=== PATIENT | male | born 1985 | race African-American/Black ===

== ENCOUNTER → 2020-03-20 | Outpatient (CLI) | payer BC, OTHER ==
[~2020-03-20] MED LIST: ALEVE220 M1; IMODIUM MULTI-1 EACH; ZOFRAN ODT4 MG PO
== END ==
LOC: ULTRA 09:35
PROVIDERS: ATTEND Family Medicine
DX: R22.31 Localized swelling, mass and lump, right upper limb (principal)

== ENCOUNTER → 2021-03-04 | Outpatient (CLI) | payer BC, OTHER | LOC: CAT 10:54 | PROVIDERS: ATTEND Family Medicine | DX: N20.1 Calculus of ureter (principal); R31.9 Hematuria, unspecified; Z87.442 Personal history of urinary calculi ==

== ENCOUNTER → 2021-06-04 | Outpatient (CLI) | payer BC ==
[~2021-06-04] MED LIST changes: +ACETAMINOPHEN325 M1 PO; +ADDERALL 20 MG20 M1 PO; +AMLODIPINE-BEN1 EAC5 PO; +CLARITIN10 M3 PO; +COLACE 100 MG100 MG PO; +FLONASE 0.05%50 MCG NARES; +IBUPROFEN 200200 M1 PO; +MIRALAX17 GM PO; +PHENTERMINE H37.5 M1 PO; +TAMSULOSIN HCL0.4 MG PO; +TRAMADOL 50 MG50 MG PO
== END ==
LOC: LAB 08:27
PROVIDERS: ATTEND Student in an Organized Health Care Education/Training Program
DX: Z01.812 Encounter for preprocedural laboratory examination (principal); Z20.822 Contact with and (suspected) exposure to COVID-19